=== PATIENT | male | born 1945 | race Caucasian/White ===

== ENCOUNTER 2017-07-09 06:28 | Day surgery (SDC) | payer MEDICARE, OTHER ==
[~2017-07-09] VITALS: Ht 182.9 cm; Wt 103.9 kg
[~2017-07-09 06:28] MED LIST: ATORVASTATIN CA20 MG PO; HYDROCHLOROTH12.5 M1 PO; HYDROCODON-ACE1 EAC8 PO; XARELTO10 MG PO
[2017-07-09] MEDS ORDERED: LOSARTAN POTAS100 MG PO (06:48)
[2017-07-09] MEDS ORDERED: ASPIRIN81 MG PO (06:49)
[2017-07-09] MEDS ORDERED: MULTI VITAMIN1 EACH PO (06:50)
[2017-07-09] MEDS ORDERED: OCUVITE TABLET1 EAC1 PO (07:11)
--- NOTE | 2017-07-09 08:15 | NUR ---
07/09/17 0815 Adilene Falk 0811-PATIENT ARRIVED TO PACU ON 3L NC O2 SAT 94% PATIENT HAS EYES OPEN DROWSY. ABDOMEN SOFT. RR EVEN
--- NOTE | 2017-07-09 09:22 | OR ---
[facility] [address], [place] [address] Signed DATE OF OPERATION: 07/09/2017 SURGEON: Jeremie Lieberman MD PREOPERATIVE DIAGNOSIS: Personal history of colonic polyps (2012). POSTOPERATIVE DIAGNOSES: 1. A 5 mm polyp at 35 cm. 2. [id number]-[id number] sigmoid diverticulosis. 3. Prominent prostate gland. PROCEDURE: Colonoscopy with hot biopsy. ESTIMATED BLOOD LOSS: None. INDICATIONS: Christianne is a 72-year-old gentleman, who had a negative colonoscopy in 2011. He then had an adenomatous polyp removed in 2012. He returns now for followup colonoscopy. He said there is no family history of colon cancer or polyps. There is a question whether or not he has irritable bowel syndrome. In the office, I gave him a pamphlet on colonoscopy and we looked at that together along with the risks including, but not limited to gas, bloating, crampy abdominal pain, bleeding, perforation, requiring surgery, and missed diagnosis. We also discussed the need for IV conscious sedation. He had expressed understanding and wished to proceed. PROCEDURE NOTE: Christianne was taken into our endoscopy suite and placed in the left lateral decubitus position. He was given IV sedation with 5 mg of Versed and 125 mcg of fentanyl. A digital rectal exam was performed and this was unremarkable except for his prostate. His prostate is moderately enlarged. It is indurated, does feel symmetric on both sides, but it is fairly prominent. He might consider reviewing that with his primary care provider. After this, the adult colonoscope was introduced and advanced all around into the cecum under direct visualization of the camera. It took some abdominal compression in order to advance the scope. His prep was moderate. He had a few areas of liquid particulate stool that was just could not suction through the scope. We actually clogged our scope several times. The scope was then slowly withdrawn. We could see his polyp at 35 cm and we removed that with a hot biopsy forceps. He also has Electronically Signed By: JEREMIE LIEBERMAN MD 07/09/17 0922 PATIENT NAME: CHRISTIANNE HELMS OPERATIVE REPORT DATE OF : 49 REPORT #: [id number] PHYSICIAN: JEREMIE LIEBERMAN MD PCP: Lata BARTH MD REPORT IS CONFIDENTIAL AND NOT TO BE RELEASED WITHOUT AUTHORIZATION [facility] [address], [place] [address] Signed some diverticula in the sigmoid colon. They were moderate in size, minimal to moderate in number, and scattered about. The rectum was unremarkable. After this, the gas was suctioned out. The colonoscope removed. Christianne tolerated the procedure quite well. RECOMMENDATIONS: Christianne can follow up in my office in 7 to 14 days to review his results. He might review his prostate exam with his primary care provider. He could consider some additional bowel prep on his next colonoscopy. MD JOE Duffy/TALAT /[id number] cc: MD Jeremie Leslie MD Copies: Lata BARTH MD, ANDREW L MD ~ Electronically Signed By: JEREMIE LIEBERMAN MD 07/09/17 0922 PATIENT NAME: CHRISTIANNE HELMS OPERATIVE REPORT DATE OF : 49 REPORT #: [id number] PHYSICIAN: JEREMIE LIEBERMAN MD PCP: Lata BARTH MD REPORT IS CONFIDENTIAL AND NOT TO BE RELEASED WITHOUT AUTHORIZATION
--- NOTE | 2017-07-09 09:57 | NUR ---
PT RESTING, ALERT AND MOSTLY ORIENTED. PT HAS HAD PREVIOUS SCOPES, SEEMED TO ACCEPT PREP APPROPRIATELY. NO CONCERNS, EXTENDED A BLESSING-STAFF IN TO TAKE PT TO SCOPE
== END 2017-07-09 09:00 | disposition home or self-care (01) ==
LOC: OPS 06:28 → DS 06:28 → OPS 09:00
PROVIDERS: Colon & Rectal Surgery
PROC: 0DBE8ZX Excision of Large Intestine, Via Natural or Artificial Opening Endoscopic, Diagnostic (ICD-10-PCS; principal; 2017-07-09 09:00)
DX: Z12.11 Encounter for screening for malignant neoplasm of colon (principal); K63.5 Polyp of colon; K57.30 Diverticulosis of large intestine without perforation or abscess without bleeding; M54.5 Low back pain; G89.29 Other chronic pain; I10 Essential (primary) hypertension; K21.9 Gastro-esophageal reflux disease without esophagitis; E78.5 Hyperlipidemia, unspecified; Z98.1 Arthrodesis status; Z86.010 Personal history of colon polyps; Z79.82 Long term (current) use of aspirin; Z79.899 Other long term (current) drug therapy; Z98.890 Other specified postprocedural states; Z90.89 Acquired absence of other organs; Z90.49 Acquired absence of other specified parts of digestive tract; Z96.652 Presence of left artificial knee joint; Z88.0 Allergy status to penicillin; Z88.2 Allergy status to sulfonamides; Z88.8 Allergy status to other drugs, medicaments and biological substances
CPT/HCPCS: 88305; 99153; G0500; J2250; J3010; J7120